=== PATIENT | female | born 1935 | race Caucasian/White ===

== ENCOUNTER 2019-10-28 18:20 | Emergency (ER) | payer MEDICARE, OTHER ==
--- NOTE | 2019-10-28 19:30 | CT ---
Exam: Right lower extremity CT HISTORY: Recent open reduction for internal fixation of right hip fracture. Patient is status post OR IF. Fall. Pain. COMPARISON: None Correlation: Right femur radiograph series 10/10/2019, right hip and femur radiograph 10/28/2019 FINDINGS: Redemonstration of a gamma nail with intramedullary leana traversing the right hip. There is a comminut ed fracture involving the right femoral neck. Avulsive fracture fragment in the lesser trochanter. Comminuted fracture involving the greater trochanter, with acute fragmentation. Extensive fracture fr agments are identified. There is a large hematoma along the greater trochanter and lateral proximal right lower extremity. Hematoma involving the vastus medialis muscle. There may be some areas of hemo rrhagic conversion and cystic change of the hematoma. Additional edema is identified in the anterior muscles. The previously identified femoral neck fracture line is still evident. Findings on the lesser and greater trochanter are presumed to be secondary to recent injury. Definite acute fracture along the internal fixation hardware is not appreciated. There is no fracture at the stem of the intramedullary leana. There is a single distal screw present. Visualized right sacrum and iliac wing are intact. Acetabulum. IMPRESSION: 1. Interval comminution of a previously identified greater trochanter fracture. There is increased de struction of the greater trochanter with fragmentation. 2. There is uncomplicated internal fixation hardware. 3. Postoperative hematoma/posttraumatic hematoma along the right lower extremity. CODE T
[2019-10-28] MEDS ORDERED: Morphine 4 MG/ML VIAL ONE (21:08)
== END 2019-10-28 22:06 ==
LOC: ERS 18:20
DX: M79.604 Pain in right leg (principal); I10 Essential (primary) hypertension; E11.9 Type 2 diabetes mellitus without complications; I48.91 Unspecified atrial fibrillation; F03.90 Unspecified dementia, unspecified severity, without behavioral disturbance, psychotic disturbance, mood disturbance, and anxiety
CPT/HCPCS: 96374; J2270